=== PATIENT | female | born 1995 | race American Indian/Alaskan Native ===

== ENCOUNTER 2020-10-31 20:41 | Emergency (ER) | payer MEDICAID ==
--- NOTE | 2020-10-31 22:22 | EDM.PDOC ---
ED HPI GENERAL MEDICAL PROBLEM - General Stated Complaint: RIGHT RING FINGER, RINGS NEED HELP GETITNGTHEM OFF Time Seen by Provider: 10/31/20 22:20 Source of Information: Reports: Patient History Limitations: Reports: No Limitations - History of Present Illness INITIAL COMMENTS - FREE TEXT/NARRATIVE: Patient comes emergency department today with complaints of a ring stuck on her right hand that she is unable to get off. This patient has had a ring on her finger for many years and try to get it off today but she has been unable to. She denies any other injury. No paresthesias to her right fourth finger which is where the rings are stuck. Left Finger-Ring Pain Score (Numeric/FACES): 8 - Related Data Allergies Allergy/AdvReac Type Severity Reaction Status Date / Time No Known Allergies Allergy Verified 10/31/20 22:26 Home Meds: Home Meds . [No Known Home Meds] 10/31/20 [History] Review of Systems - Review of Systems Review Of Systems: Comprehensive ROS is negative, except as noted in HPI. ED EXAM, GENERAL - Physical Exam Exam: See Below Exam Limited By: No Limitations General Appearance: Alert, WD/WN, No Apparent Distress Respiratory/Chest: No Respiratory Distress Cardiovascular: Normal Peripheral Pulses Extremities: Other (rest of the hand is unremarkable. ). No: Normal Inspection (On the patient's right hand there is 2 rings at the base of the proximal phalanx of the right fourth finger that are very tight and there is quite a bit of swelling of the soft tissue just distal to where the rings are. She is able to flex and extend at the DIP PIP and MCP joint of that finger. ) Neurological: Alert, Oriented Skin Exam: Warm, Dry, Intact, Normal Color Course - Vital Signs Last Recorded V/S: Last Vital Signs Temp 96.4 F L 10/31/20 22:10 Pulse 107 H 10/31/20 22:10 Resp 16 10/31/20 22:10 BP 112/59 L 10/31/20 22:10 Pulse Ox 99 10/31/20 22:10 - Re-Assessments/Exams Free Text/Narrative Re-Assessment/Exam: We were able to cut the ring off without difficulty. No injury to the skin. No breaks in the skin. Departure - Departure Time of Disposition: 20:20 Disposition: Home, Self-Care 01 Clinical Impression: Finger injury Qualifiers: Encounter type: initial encounter Laterality: right Qualified Code(s): S69.91XA - Unspecified injury of right wrist, hand and finger(s), initial encounter - Discharge Information Referrals: PCP,None [Primary Care Provider] - Forms: ED Department Discharge Additional Instructions: Recheck if any concerns. Watch for infection. Sepsis Event Note (ED) - Focused Exam Vital Signs: Vital Signs Temp Temp Pulse Resp BP Pulse Ox 10/31/20 22:10 96.4 F L 96.4 F L 107 H 16 112/59 L 99
== END 2020-10-31 22:24 | disposition home or self-care (01) ==
LOC: DL.ED 20:41
DX: S60.454A Superficial foreign body of right ring finger, initial encounter (principal); W45.8XXA Other foreign body or object entering through skin, initial encounter
CPT/HCPCS: 99282; 99283

== ENCOUNTER 2023-12-31 12:04 | Emergency (ER) | payer SELFPAY ==
[~2023-12-31 12:04] MED LIST: Haloperidol Lactate 5 MG/ML SDV IM ONE
[2023-12-31] MEDS ORDERED: LORazepam 2 MG/ML SDV IM ONE (12:21)
[2023-12-31] MEDS: diphenhydrAMINE 50 MG/ML SDV IM ONE (12:22)
[2023-12-31] MEDS: LORazepam 2 MG/ML SDV ONE (12:22)
[2023-12-31 12:28] LABS: BASOPHILS PERCENT AUTO 0.1 % (0.0-1.0); HEMATOCRIT 39.2 % (37.0-47.0); HEMOGLOBIN 13.1 g/dL (12.0-16.0); LYMPHOCYTES PERCENT AUTO 3.7 % (20.5-50.1); MEAN CORPUSCULAR HEMOGLOBIN 30.8 pg (27.0-34.0); MEAN CORPUSCULAR HGB CONC 33.4 g/dL (33.0-35.0); MEAN CORPUSCULAR VOLUME 92.2 fL (80-100); MONOCYTES PERCENT AUTO 7.7 % (2-8); NEUTROPHILS PERCENT AUTO 88.5 % (42.2-75.2); PLATELET COUNT,PLT 330 10^3/uL (150-450); RED BLOOD CELL COUNT 4.25 10^6/uL (4.2-5.4); WHITE BLOOD CELL COUNT,WBC 20.9 10^3/uL (5.0-10.0)
[2023-12-31 12:50] LABS: HCG QUALITATIVE,SERUM NEGATIVE (NEGATIVE)
[2023-12-31] MEDS: Lactated Ringers 1,000 ML IV SCH (13:05)
[2023-12-31 13:10] LABS: A/G RATIO 1.4; ALANINE AMINOTRANSFERASE,ALT 21 U/L (14-59); ALBUMIN 4.6 g/dL (3.4-5.0); ALKALINE PHOSPHATASE 64 U/L (46-116); ANION GAP 23.2 mEq/L (7-13); ASPARTATE AMNIOTRANSFERASE,AST 64 U/L (15-37); BILIRUBIN TOTAL 3.1 mg/dL (0.2-1.0); BLOOD UREA NITROGEN,BUN 28 mg/dL (7-18); BUN/CREATININE RATIO 28.3 (No establ ref range); CALCIUM 9.8 mg/dL (8.5-10.1); CARBON DIOXIDE,CO2 21 mmol/L (21-32); CHLORIDE,CL 96 mmol/L (98-107); CREATININE 0.99 mg/dL (0.55-1.02); EST CRCL DRUG DOSING (CG) 81.11 mL/min; GLUCOSE RANDOM 69 mg/dL (70-99); POTASSIUM,K 3.2 mmol/L (3.5-5.1); SODIUM,NA 137 mmol/L (136-145)
[2023-12-31 13:13] LABS: ACETAMINOPHEN 0 ug/mL (10-30 (Therapeutic)); ESTIMATED GFR 80 mL/min (>=60)
[2023-12-31] MEDS ORDERED: 50% Dextrose in Water 50 ML Syringe IVPUSH ONE (13:34)
[2023-12-31 14:07] LABS: APPEARANCE,URINE CLEAR (CLEAR); BILIRUBIN,URINE SMALL (NEGATIVE); COLOR,URINE YELLOW (YELLOW); GLUCOSE,URINE NEGATIVE (NEGATIVE); KETONES,URINE 80 (NEGATIVE); LEUKOCYTE ESTERASE,URINE NEGATIVE (NEGATIVE); NITRITE,URINE NEGATIVE (NEGATIVE); OCCULT BLOOD,URINE MODERATE (NEGATIVE); PROTEIN,URINE 100 (NEGATIVE)
[2023-12-31 14:09] LABS: AMPHETAMINES,URINE POSITIVE (NEGATIVE); BARBITURATES,URINE NEGATIVE (NEGATIVE); BENZODIAZEPINE,URINE NEGATIVE (NEGATIVE); MDMA (ECSTASY), URINE POSITIVE (NEGATIVE); METHADONE,URINE NEGATIVE (NEGATIVE); METHAMPHETAMINES,URINE POSITIVE (NEGATIVE); OPIATES,URINE NEGATIVE (NEGATIVE); OXYCODONE,URINE NEGATIVE (NEGATIVE); PHENCYCLIDINE,URINE NEGATIVE (NEGATIVE); TCA,URINE NEGATIVE (NEGATIVE)
[2023-12-31 14:23] LABS: BACTERIA,URINE MODERATE /HPF (0-FEW/HPF); EPITHELIAL CELLS,URINE MODERATE /HPF (NOT SEEN); HYALINE CASTS,URINE FEW; MUCUS,URINE FEW /LPF (NOT SEEN)
[2023-12-31] MEDS: Benzocaine/Cetylpyridinium/Menthol Lozenge MUCMEM ONE (18:00)
[2023-12-31] MEDS ORDERED: Sodium Chloride 0.9% 250 ML ONE (18:44)
[2023-12-31] MEDS ORDERED: Vancomycin 1 GM SDV ONE (18:44)
[2023-12-31] MEDS: LORazepam 2 MG/ML SDV IVPUSH ONE (18:45)
[2023-12-31] MEDS: cefTRIAXone 1 GM Vial IVPUSH ONE (18:45)
[2023-12-31 19:11] LABS: C-REACTIVE PROTEIN 2.15 ng/dL (<=0.50)
[2024-01-02 15:42] LABS: HAV AB IGM Negative (Negative); HBC IGM Negative (Negative); HEP B SURG AG Negative (Negative); HEP C AB BY CIA Negative (Negative); HEP C AB BY CIA INDEX 0.07 IV
== END 2023-12-31 19:20 ==
LOC: DL.ED 12:04
DX: R41.0 Disorientation, unspecified (principal); F15.10 Other stimulant abuse, uncomplicated
CPT/HCPCS: 36415; 71045; 80053; 80074; 80143; 80179; 80305; 80307; 81001; 83605; 84145; 84703; 85025; 86140; 87040; 87389; 93005; 93308; 96361; 96365; 96372; 96375; 99285; A9270; J0696; J1200; J2060; J3370; J7050; J7120; 82947

== ENCOUNTER 2024-11-29 20:51 | Emergency (ER) | payer MEDICAID ==
[2024-11-29] MEDS ORDERED: Sodium Chloride 0.9% 10 ML Syringe FLUSH PRN (21:10)
[2024-11-29 21:26] LABS: BASOPHILS PERCENT AUTO 0.1 % (0.0-1.0); EOSINOPHILS PERCENT AUTO 0.3 % (1.0-3.0); HEMATOCRIT 28.2 % (37.0-47.0); HEMOGLOBIN 9.9 g/dL (12.0-16.0); LYMPHOCYTES PERCENT AUTO 27.3 % (20.5-50.1); MEAN CORPUSCULAR HEMOGLOBIN 32.4 pg (27.0-34.0); MEAN CORPUSCULAR HGB CONC 35.1 g/dL (33.0-35.0); MEAN CORPUSCULAR VOLUME 92.2 fL (80-100); NEUTROPHILS PERCENT AUTO 63.3 % (42.2-75.2); PLATELET COUNT,PLT 340 10^3/uL (150-450); RED BLOOD CELL COUNT 3.06 10^6/uL (4.2-5.4); WHITE BLOOD CELL COUNT,WBC 7.3 10^3/uL (5.0-10.0)
[2024-11-29 22:09] LABS: A/G RATIO 1.1; ALANINE AMINOTRANSFERASE,ALT 18 U/L (14-59); ALBUMIN 3.9 g/dL (3.4-5.0); ALKALINE PHOSPHATASE 70 U/L (46-116); ASPARTATE AMNIOTRANSFERASE,AST 33 U/L (15-37); BLOOD UREA NITROGEN,BUN 49 mg/dL (7-18); BUN/CREATININE RATIO 9.3 (No establ ref range); CALCIUM 9.4 mg/dL (8.5-10.1); CHLORIDE,CL 73 mmol/L (98-107); EST CRCL DRUG DOSING (CG) 8.62 mL/min; GLUCOSE RANDOM 102 mg/dL (70-99); MAGNESIUM 3.1 mg/dL (1.8-2.4); PHOSPHORUS 6.3 mg/dL (2.6-4.7); PROTEIN TOTAL,TP 7.4 g/dL (6.4-8.2); SODIUM,NA 129 mmol/L (136-145); TSH ULTRASENSITIVE 0.82 uIU/mL (0.36-3.74)
[2024-11-29 22:18] LABS: CARBON DIOXIDE,CO2 > 45 mmol/L (21-32); POTASSIUM,K 1.7 mmol/L (3.5-5.1)
[2024-11-29 22:19] LABS: CREATININE 5.29 mg/dL (0.55-1.02); ESTIMATED GFR 11 mL/min (>=60); ETHANOL BLOOD MEDICAL < 3 mg/dL (0)
[2024-11-29] MEDS ORDERED: Potassium Chloride 20 MEQ in Premix Bag 1 BAG IV ONE (22:20)
[2024-11-29] MEDS ORDERED: MVI, Adult with Vitamin K 10 ML in Dextrose 5%-Lactated Ringers 1,000 ML IV SCH (22:30)
[2024-11-29] MEDS ORDERED: NS with KCl 40mEq 1,000 ML IV SCH (22:30)
[2024-11-29] MEDS: MVI, Adult with Vitamin K 10 ML, Folic Acid 1 MG, Thiamine 100 MG in Lactated Ringers 1... IV ONE (22:52)
[2024-11-29] MEDS: Potassium Chloride 20 MEQ in Premix Bag 1 BAG IV ONE (22:53)
== END 2024-11-29 23:21 ==
LOC: DL.ED 20:51
DX: S06.9X9A Unspecified intracranial injury with loss of consciousness of unspecified duration, initial encounter (principal); N17.9 Acute kidney failure, unspecified; E87.6 Hypokalemia; F50.00 Anorexia nervosa, unspecified; R63.4 Abnormal weight loss; W01.198A Fall on same level from slipping, tripping and stumbling with subsequent striking against other object, initial encounter
CPT/HCPCS: 36415; 70450; 80053; 80307; 82009; 82140; 82550; 82607; 83605; 83735; 84100; 84443; 85025; 93005; 96365; 96368; 99283; 99285-25; J3411; J3480; J3490; J7120

== ENCOUNTER 2024-12-04 22:52 | Emergency (ER) | payer MEDICAID ==
[~2024-12-04 22:52] MED LIST changes: -Haloperidol Lactate 5 MG/ML SDV IM ONE; +Sodium Chloride 0.9% 10 ML Syringe FLUSH PRN
[2024-12-04 23:29] LABS: BASOPHILS PERCENT AUTO 0.4 % (0.0-1.0); EOSINOPHILS PERCENT AUTO 0.7 % (1.0-3.0); HEMATOCRIT 25.9 % (37.0-47.0); HEMOGLOBIN 8.3 g/dL (12.0-16.0); LYMPHOCYTES PERCENT AUTO 37.4 % (20.5-50.1); MEAN CORPUSCULAR HEMOGLOBIN 31.9 pg (27.0-34.0); MEAN CORPUSCULAR VOLUME 99.6 fL (80-100); MONOCYTES PERCENT AUTO 7.9 % (2-8); NEUTROPHILS PERCENT AUTO 53.6 % (42.2-75.2); PLATELET COUNT,PLT 353 10^3/uL (150-450); WHITE BLOOD CELL COUNT,WBC 8.4 10^3/uL (5.0-10.0)
[2024-12-04] MEDS: Sodium Chloride 0.9% 1,000 ML IV ONE (23:37)
[2024-12-04 23:59] LABS: ALANINE AMINOTRANSFERASE,ALT 74 U/L (14-59); ALBUMIN 3.3 g/dL (3.4-5.0); ALKALINE PHOSPHATASE 71 U/L (46-116); ASPARTATE AMNIOTRANSFERASE,AST 56 U/L (15-37); BILIRUBIN TOTAL 0.4 mg/dL (0.2-1.0); BLOOD UREA NITROGEN,BUN 29 mg/dL (7-18); BUN/CREATININE RATIO 15.3 (No establ ref range); CALCIUM 8.9 mg/dL (8.5-10.1); CREATININE 1.89 mg/dL (0.55-1.02); GLUCOSE RANDOM 71 mg/dL (70-99); MAGNESIUM 1.7 mg/dL (1.8-2.4); PROTEIN TOTAL,TP 7.3 g/dL (6.4-8.2); TSH ULTRASENSITIVE 0.82 uIU/mL (0.36-3.74)
[2024-12-05 00:01] LABS: LACTIC ACID 2.2 mmol/L (0.4-2.0)
[2024-12-05 00:04] LABS: CHLORIDE,CL 92 mmol/L (98-107); POTASSIUM,K 2.8 mmol/L (3.5-5.1); SODIUM,NA 142 mmol/L (136-145)
[2024-12-05 00:13] LABS: A/G RATIO 0.83; ACETAMINOPHEN 0 ug/mL (10-30 (Therapeutic)); CARBON DIOXIDE,CO2 > 45 mmol/L (21-32); ESTIMATED GFR 37 mL/min (>=60); ETHANOL BLOOD MEDICAL < 3 mg/dL (0)
[2024-12-05] MEDS: Potassium Chloride 20 MEQ in Premix Bag 1 BAG IV ONE ×2 (01:00→03:10)
[2024-12-05] MEDS: Sodium Chloride 0.9% 1,000 ML IV ONE (01:00)
[2024-12-05 01:21] LABS: APPEARANCE,URINE CLEAR (CLEAR); BILIRUBIN,URINE NEGATIVE (NEGATIVE); COLOR,URINE YELLOW (YELLOW); GLUCOSE,URINE NEGATIVE (NEGATIVE); KETONES,URINE NEGATIVE (NEGATIVE); LEUKOCYTE ESTERASE,URINE NEGATIVE (NEGATIVE); NITRITE,URINE NEGATIVE (NEGATIVE); OCCULT BLOOD,URINE NEGATIVE (NEGATIVE); PH,URINE >= 9.0 (5.0-9.0); PROTEIN,URINE 100 (NEGATIVE); UROBILINOGEN,URINE 0.2 mg/dL (0.2-1.0)
[2024-12-05 01:25] LABS: AMPHETAMINES,URINE NEGATIVE (NEGATIVE); BARBITURATES,URINE NEGATIVE (NEGATIVE); BENZODIAZEPINE,URINE NEGATIVE (NEGATIVE); MDMA (ECSTASY), URINE NEGATIVE (NEGATIVE); METHADONE,URINE NEGATIVE (NEGATIVE); METHAMPHETAMINES,URINE NEGATIVE (NEGATIVE); OPIATES,URINE NEGATIVE (NEGATIVE); OXYCODONE,URINE NEGATIVE (NEGATIVE); PHENCYCLIDINE,URINE NEGATIVE (NEGATIVE); TCA,URINE NEGATIVE (NEGATIVE)
[2024-12-05 01:38] LABS: BACTERIA,URINE RARE /HPF (0-FEW/HPF); EPITHELIAL CELLS,URINE RARE /HPF (NOT SEEN); RBC,URINE 0-5 /HPF (0-5); WBC,URINE 0-5 /HPF (0-5/HPF)
[2024-12-05 06:48] LABS: ANION GAP 2.8 mEq/L (7-13); BLOOD UREA NITROGEN,BUN 22 mg/dL (7-18); CALCIUM 8.1 mg/dL (8.5-10.1); CARBON DIOXIDE,CO2 43 mmol/L (21-32); CHLORIDE,CL 101 mmol/L (98-107); CREATININE 1.65 mg/dL (0.55-1.02); GLUCOSE RANDOM 87 mg/dL (70-99); POTASSIUM,K 3.8 mmol/L (3.5-5.1); SODIUM,NA 143 mmol/L (136-145)
[2024-12-05 06:49] LABS: ESTIMATED GFR 43 mL/min (>=60)
[2024-12-05] MEDS: Ondansetron 8 MG in Sodium Chloride 0.9% 50 ML IV ONE (11:20)
[2024-12-05] MEDS: Magnesium Sulfate 2 GM/50 mL 2 GM in Premix Bag 1 BAG IV ONE (11:24)
[2024-12-05 11:45] LABS: BLOOD UREA NITROGEN,BUN 21 mg/dL (7-18); CALCIUM 8.8 mg/dL (8.5-10.1); CHLORIDE,CL 101 mmol/L (98-107); CREATININE 1.67 mg/dL (0.55-1.02); GLUCOSE RANDOM 89 mg/dL (70-99); PHOSPHORUS 2.5 mg/dL (2.6-4.7); POTASSIUM,K 3.8 mmol/L (3.5-5.1); SODIUM,NA 144 mmol/L (136-145)
[2024-12-05] MEDS: Lactated Ringers 1,000 ML IV SCH (11:47)
[2024-12-05] MEDS: Potassium Phosphates 30 MMOLE in Sodium Chloride 0.9% 250 ML IV ONE (11:47)
[2024-12-05] MEDS: Thiamine 500 MG in Sodium Chloride 0.9% 100 ML IV ONE (11:48)
[2024-12-05 12:02] LABS: ANION GAP 1.79999 mEq/L (7-13); CARBON DIOXIDE,CO2 > 45 mmol/L (21-32); ESTIMATED GFR 43 mL/min (>=60)
[2024-12-06] MEDS: Thiamine 500 MG in Sodium Chloride 0.9% 100 ML IV ONE (07:56)
[2024-12-06] MEDS: D5 1/2 NS w/ 20 mEq/L KCl 1,000 ML IV SCH (07:59)
[2024-12-06 08:44] LABS: A/G RATIO 0.83; ALANINE AMINOTRANSFERASE,ALT 48 U/L (14-59); ALBUMIN 2.9 g/dL (3.4-5.0); ALKALINE PHOSPHATASE 59 U/L (46-116); ANION GAP 5.2 mEq/L (7-13); ASPARTATE AMNIOTRANSFERASE,AST 31 U/L (15-37); BILIRUBIN TOTAL 0.6 mg/dL (0.2-1.0); BLOOD UREA NITROGEN,BUN 18 mg/dL (7-18); BUN/CREATININE RATIO 10.2 (No establ ref range); CARBON DIOXIDE,CO2 35 mmol/L (21-32); CHLORIDE,CL 103 mmol/L (98-107); CREATININE 1.76 mg/dL (0.55-1.02); ESTIMATED GFR 40 mL/min (>=60); GLUCOSE RANDOM 81 mg/dL (70-99); PHOSPHORUS 3.7 mg/dL (2.6-4.7); POTASSIUM,K 4.2 mmol/L (3.5-5.1); PROTEIN TOTAL,TP 6.4 g/dL (6.4-8.2); SODIUM,NA 139 mmol/L (136-145)
[2024-12-06] MEDS ORDERED: Thiamine 500 MG in Sodium Chloride 0.9% 250 ML IV SCH (13:30)
[2024-12-06 14:00] LABS: ANION GAP 3.4 mEq/L (7-13); BLOOD UREA NITROGEN,BUN 18 mg/dL (7-18); CALCIUM 8.8 mg/dL (8.5-10.1); CARBON DIOXIDE,CO2 34 mmol/L (21-32); CHLORIDE,CL 101 mmol/L (98-107); CREATININE 1.67 mg/dL (0.55-1.02); ESTIMATED GFR 43 mL/min (>=60); GLUCOSE RANDOM 103 mg/dL (70-99); MAGNESIUM 1.7 mg/dL (1.8-2.4); POTASSIUM,K 4.4 mmol/L (3.5-5.1); SODIUM,NA 134 mmol/L (136-145)
[2024-12-11 09:46] LABS: IONIZED CA@PH7.4 1.27 mmol/L (1.09-1.30); IONIZED CALCIUM 1.2 mmol/L (1.09-1.30)
== END 2024-12-06 14:53 | disposition home or self-care (01) ==
LOC: DL.ED 22:52
DX: E87.6 Hypokalemia (principal); R62.7 Adult failure to thrive; F50.00 Anorexia nervosa, unspecified; Z72.89 Other problems related to lifestyle
CPT/HCPCS: 36415; 80048; 80053; 80143; 80179; 80305; 80307; 81001; 81025; 82009; 82330; 83605; 83735; 84100; 84443; 85025; 93005; 93010; 96361; 96365; 96366; 96368; 99285; J2405; J3411; J3475; J3480; J7030; J7120

== ENCOUNTER 2025-04-13 14:39 | Emergency (ER) | payer MEDICAID ==
[2025-04-13] MEDS ORDERED: Sodium Chloride 0.9% 10 ML Syringe FLUSH PRN (14:53)
[2025-04-13 15:16] LABS: BASOPHILS PERCENT AUTO 0.2 % (0.0-1.0); EOSINOPHILS PERCENT AUTO 0.7 % (1.0-3.0); LYMPHOCYTES PERCENT AUTO 39.9 % (20.5-50.1); MONOCYTES PERCENT AUTO 10.5 % (2-8); NEUTROPHILS PERCENT AUTO 48.7 % (42.2-75.2); PLATELET COUNT,PLT 326 10^3/uL (150-450); RED BLOOD CELL COUNT 2.58 10^6/uL (4.2-5.4); WHITE BLOOD CELL COUNT,WBC 5.5 10^3/uL (5.0-10.0)
[2025-04-13 15:37] LABS: ALANINE AMINOTRANSFERASE,ALT 38 U/L (14-59); ASPARTATE AMNIOTRANSFERASE,AST 35 U/L (15-37); BILIRUBIN TOTAL 0.5 mg/dL (0.2-1.0); BLOOD UREA NITROGEN,BUN 38 mg/dL (7-18); CHLORIDE,CL 86 mmol/L (98-107); CREATININE 1.96 mg/dL (0.55-1.02); GLUCOSE RANDOM 87 mg/dL (70-99); PROTEIN TOTAL,TP 6.3 g/dL (6.4-8.2); SODIUM,NA 140 mmol/L (136-145)
[2025-04-13 15:38] LABS: POTASSIUM,K 1.9 mmol/L (3.5-5.1)
[2025-04-13 15:39] LABS: A/G RATIO 1.10; CARBON DIOXIDE,CO2 > 45 mmol/L (21-32); ESTIMATED GFR 35 mL/min (>=60)
[2025-04-13] MEDS: Potassium Chloride 20 MEQ in Premix Bag 1 BAG IV ONE (15:45)
[2025-04-13] MEDS: Potassium Chloride 10 MEQ Tab.ER PO ONE (15:45)
[2025-04-13 15:57] LABS: O2 DELIVERY DEVICE ROOM AIR
[2025-04-13 15:59] LABS: PH,VENOUS 7.52 (7.31-7.41)
[2025-04-13 16:00] LABS: BASE EXCESS VENOUS 25.8 mmol/l ((-2)-(+3)); BICARBONATE,VENOUS 53 mmol/l (19-25); O2 SATURATION VENOUS 99.9 % (60-80); PCO2 VENOUS 64 mmHg (41-51); PO2 VENOUS 183 mmHg (35-42)
== END 2025-04-13 17:34 ==
LOC: DL.ED 14:39
DX: F50.2 Bulimia nervosa (principal); E87.6 Hypokalemia; E87.3 Alkalosis
CPT/HCPCS: 36415; 80053; 82803; 83735; 84100; 85025; 96365; 96366; 99285; A9270; J3480; J7030; J7040